=== PATIENT | female | born 1940 | race Caucasian/White ===

== ENCOUNTER 2020-01-24 20:30 | Emergency (ER) | payer MEDICARE, OTHER ==
[~2020-01-24] VITALS: Ht 154.9 cm; Wt 61.0 kg
--- NOTE | 2020-01-24 20:58 | PHYS DOC ---
Past History Past Medical History: GERD, High Cholesterol, Hypertension Past Surgical History: Other Alcohol Use: None Drug Use: None Adult General Chief Complaint Chief Complaint: HEAD INJURY/TRAUMA HPI HPI Patient is a 79-year-old female who presents status post mechanical fall. This happened less than 1 hour prior to arrival. Patient reports going to dinner with other family members. She reports feeling nauseous and generally uneasy prior to eating meal. Nonetheless, patient ate with family and was transported back home. When trying to evacuate vehicle changing from a seated to standing position, patient reports feeling off balance and fell. She cannot completely remember the incident. This episode was observed by family members present who confirmed that she fell backwards and hit posterior right head on pavement. Patient was able to self ambulate after incident but given fall, this concerned family members who immediately transported patient to our ER for evaluation. Patient reports mild dull pain to right posterior head, denies any known lacerations. Patient unable to accurately recall if she had any prodromal symptoms prior to fall. This has never happened to her before. She is being treated for hypertension and hypercholesterolemia and has been compliant with all medications, she does not have a cardiac history or changes in recent medications. She has no recent febrile illness, no chest pain, no shortness of breath, no abdominal pain, nausea previously experienced prior to fall has resolved. She is not on any blood thinners Review of Systems Review of Systems Fourteen body systems of review of systems have been reviewed. See HPI for pertinent positives and negative responses, other carbajal all other systems are negative, non-pertinent or non-contributory Allergies Allergies Allergies Coded Allergies Type Severity Reaction Last Updated Verified Sulfa (Sulfonamide Antibiotics) Allergy Unknown 05/01/16 Yes Physical Exam Physical Exam Constitutional: Pt is oriented to person, place, and time. Pt appears well- developed and well-nourished. HENT: Head: Normocephalic and atraumatic. Mouth/Throat: Oropharynx is clear and moist. No lacerations or abrasions to face or scalp. Approximately 3 cm hematoma present on right posterior occiput without overlying abrasion or laceration OP clear, no blood, no malocclusion, dentition intact Nares clear, no nasal septal hematoma TMs clear, no hemotympanum Midface stable Eyes: Conjunctivae and EOM are normal. Pupils are equal, round, and reactive to light. Neck: C-spine midline nontender, no step-offs Cardiovascular: Normal rate, regular rhythm and normal heart sounds. Pulmonary/Chest: Effort normal and breath sounds normal. No respiratory distress. No wheezes. CTA bilaterally Abdominal: Soft. Bowel sounds are normal. Pt exhibits no distension. There is no tenderness. Musculoskeletal: No bony tenderness to extremities, no deformities, full ROM extremities Chest wall stable Pelvis stable and non-tender No vertebral TTP and spine without stepoffs Neurological: Pt is alert and oriented to person, place, and time. Moving all extremities willfully, able to wiggle all fingers and toes Alert and oriented x 3 Sensation grossly intact Skin: Skin is warm and dry. No abrasions, no lacerations Psychiatric: Behavior is appropriate for situation Nursing note and vitals reviewed. Current Patient Data Vital Signs Vital Signs Date Time Temp Pulse Resp B/P (MAP) Pulse Ox O2 Delivery O2 Flow Rate FiO2 01/24/20 20:38 97.7 69 16 189/95 (126) 99 Room Air Lab Results Laboratory Tests Test 01/24/20 21:00 White Blood Count 8.2 x10^3/uL (4.0-11.0) Red Blood Count 4.19 x10^6/uL (3.50-5.40) Hemoglobin 12.5 g/dL (12.0-15.5) Hematocrit 37.6 % (36.0-47.0) Mean Corpuscular Volume 90 fL (79-100) Mean Corpuscular Hemoglobin 30 pg (25-35) Mean Corpuscular Hemoglobin Concent 33 g/dL (31-37) Red Cell Distribution Width 13.8 % (11.5-14.5) Platelet Count 200 x10^3/uL (140-400) Neutrophils (%) (Auto) 62 % (31-73) Lymphocytes (%) (Auto) 20 % (24-48) Monocytes (%) (Auto) 13 % (0-9) Eosinophils (%) (Auto) 4 % (0-3) Basophils (%) (Auto) 1 % (0-3) Neutrophils # (Auto) 5.1 x10^3uL (1.8-7.7) Lymphocytes # (Auto) 1.6 x10^3/uL (1.0-4.8) Monocytes # (Auto) 1.1 x10^3/uL (0.0-1.1) Eosinophils # (Auto) 0.4 x10^3/uL (0.0-0.7) Basophils # (Auto) 0.1 x10^3/uL (0.0-0.2) Sodium Level 133 mmol/L (136-145) Potassium Level 3.8 mmol/L (3.5-5.1) Chloride Level 98 mmol/L (98-107) Carbon Dioxide Level 25 mmol/L (21-32) Anion Gap 10 (6-14) Blood Urea Nitrogen 24 mg/dL (7-20) Creatinine 1.0 mg/dL (0.6-1.0) Estimated GFR (Cockcroft-Gault) 53.8 BUN/Creatinine Ratio 24 (6-20) Glucose Level 149 mg/dL (70-99) Calcium Level 10.0 mg/dL (8.5-10.1) Total Bilirubin 0.3 mg/dL (0.2-1.0) Aspartate Amino Transf (AST/SGOT) 18 U/L (15-37) Alanine Aminotransferase (ALT/SGPT) 22 U/L (14-59) Alkaline Phosphatase 103 U/L (46-116) Troponin I Quantitative < 0.017 ng/mL (0-0.055) Total Protein 7.0 g/dL (6.4-8.2) Albumin 3.8 g/dL (3.4-5.0) Albumin/Globulin Ratio 1.2 (1.0-1.7) EKG EKG EKG ordered and interpreted by myself at 2153 hrs. as sinus rhythm at 66 bpm, unremarkable intervals, no axis deviation, no ischemic findings, no STEMI Radiology/Procedures Radiology/Procedures PROCEDURE: CHEST AP ONLY Exam: Chest one view INDICATION: Fall TECHNIQUE: Frontal view of the chest Comparisons: None FINDINGS: The cardiomediastinal silhouette and pulmonary vessels are within normal limits. The lung and pleural spaces are clear. IMPRESSION: No acute cardiopulmonary process. Electronically signed by: India Jasmine MD (01/24/2020 9:58 PM) [facility] PROCEDURE: CT HEAD AND CERVICAL SPINE WO Exam: CT head and cervical spine without contrast INDICATION: Mechanical fall, hit posterior right head TECHNIQUE: Sequential axial images through the head and cervical spine were obtained without the administration of IV contrast. Comparisons: None FINDINGS: Head: No focal parenchymal lesion or hemorrhage is identified. There is no midline shift or sulcal effacement. There is patchy hypodensity in the periventricular white matter. No acute vascular territory infarction is identified. Victoria-white distinction is preserved. The ventricular system is within normal limits without compression hydrocephalus. The basal cisterns are well maintained. Mild extra cranial soft tissue scalp contusion overlying the vertex. The visualized portions of the paranasal sinuses and mastoid air cells are well-pneumatized. No acute fractures. Cervical spine: Vertebral body heights are well-maintained. There is straightening of the cervical spine which may be positional. Fracture to the cervical spine is not identified. Multilevel spondylotic change in cervical spine with degenerative disc disease greatest at C6-C7. Visualized paraspinal soft tissues are unremarkable. IMPRESSION: 1. Mild extra cranial soft tissue scalp contusion overlying the vertex without underlying osseous or intracranial abnormality. 2. Negative CT C-spine for acute traumatic injury. Exposure: One or more of the following in the visualized dose reduction techniques were utilized for this examination: 1. Automated exposure control 2. Adjustment of the MA and/or KV according to patient size Use of iterative of reconstructive technique Electronically signed by: India Jasmine MD (01/24/2020 9:44 PM) [facility] Heart Score HEART Score for Chest Pain: HEART Score for Chest Pain Response (Comments) Value History Slighlty/Non-Suspicious 0 ECG Normal 0 Age > 65 2 Risk Factors 1 or 2 Risk Factors 1 Troponin < Normal Limit 0 Total 3 Risk Factors: Risk Factors: DM, Current or recent (<one month) smoker, HTN, HLP, family history of CAD, obesity. Risk Scores: Risk Factors: DM, Current or recent (<one month) smoker, HTN, HLP, family history of CAD, obesity. Course & Med Decision Making Course & Med Decision Making Patient seen on ER arrival ABCs nonconcerning Comprehensive history and physical exam obtained, subsequent diagnostic work-up ordered Discussed most likely diagnosis of head contusion after grossly benign physical examination and diagnostic studies I did disclose this might be an acute presentation of more concerning pathology; however, it is comforting that patient is going home and lives with with good family support as daughter lives next door I discussed need for close outpatient follow-up with primary care physician in upcoming 48 hours, patient reports this is possible I educated patient on strict return precautions with good understanding, all questions and concerns addressed prior to ER departure in stable condition with supportive care advised Shayy Disclaimer Shayy Disclaimer This electronic medical record was generated, in whole or in part, using a voice recognition dictation system. Departure Departure: Impression: Primary Impression: Fall Disposition: 01 DC HOME SELF CARE/HOMELESS Condition: STABLE Referrals: ALPHONSO SALINAS MD (PCP) Patient Instructions: Fall Prevention and Home Safety Additional Instructions: As discussed prior to ER departure, please call your primary care physician to schedule outpatient follow-up in upcoming 7 days It was a pleasure to take care of you this evening and I wish you a speedy recovery! HEAVEN VILLA DO Jan 24, 2020 20:57
[2020-01-24 21:14] LABS: BASO # 0.1 x10^3/uL (0.0-0.2); BASO % 1 % (0-3); EOS # 0.4 x10^3/uL (0.0-0.7); EOS % 4 % (0-3); HEMATOCRIT 37.6 % (36.0-47.0); HEMOGLOBIN 12.5 g/dL (12.0-15.5); LYMPH # 1.6 x10^3/uL (1.0-4.8); LYMPH % 20 % (24-48); MEAN CORPUSCULAR HEMOGLOBIN 30 pg (25-35); MEAN CORPUSCULAR HGB CONC 33 g/dL (31-37); MEAN CORPUSCULAR VOLUME 90 fL (79-100); MONO # 1.1 x10^3/uL (0.0-1.1); MONO % 13 % (0-9); NEUT # 5.1 x10^3uL (1.8-7.7); NEUT % 62 % (31-73); PLATELET COUNT 200 x10^3/uL (140-400); RED BLOOD COUNT 4.19 x10^6/uL (3.50-5.40); RED CELL DISTRIBUTION WIDTH 13.8 % (11.5-14.5); WHITE BLOOD COUNT 8.2 x10^3/uL (4.0-11.0)
[2020-01-24 21:30] LABS: GFR 53.8; POTASSIUM 3.8 mmol/L (3.5-5.1)
[2020-01-24 21:33] LABS: ALBUMIN 3.8 g/dL (3.4-5.0); ALBUMIN/GLOBULIN RATIO 1.2 (1.0-1.7); TOTAL BILIRUBIN 0.3 mg/dL (0.2-1.0)
--- NOTE | 2020-01-24 21:47 | RAD ---
Exam: CT head and cervical spine without contrast INDICATION: Mechanical fall, hit posterior right head TECHNIQUE: Sequential axial images through the head and cervical spine were obtained without the administration of IV contrast. Comparisons: None FINDINGS: Head: No focal parenchymal lesion or hemorrhage is identified. There is no midline shift or sulcal effacement. There is patchy hypodensity in the periventricular white matter. No acute vascular territory infarction is identified. Victoria-white distinction is preserved. The ventricular system is within normal limits without compression hydrocephalus. The basal cisterns are well maintained. Mild extra cranial soft tissue scalp contusion overlying the vertex. The visualized portions of the paranasal sinuses and mastoid air cells are well-pneumatized. No acute fractures. Cervical spine: Vertebral body heights are well-maintained. There is straightening of the cervical spine which may be positional. Fracture to the cervical spine is not identified. Multilevel spondylotic change in cervical spine with degenerative disc disease greatest at C6-C7. Visualized paraspinal soft tissues are unremarkable. IMPRESSION: 1. Mild extra cranial soft tissue scalp contusion overlying the vertex without underlying osseous or intracranial abnormality. 2. Negative CT C-spine for acute traumatic injury. Exposure: One or more of the following in the visualized dose reduction techniques were utilized for this examination: 1. Automated exposure control 2. Adjustment of the MA and/or KV according to patient size Use of iterative of reconstructive technique Electronically signed by: India Jasmine MD (01/24/2020 9:44 PM) [facility]
--- NOTE | 2020-01-24 22:01 | RAD ---
Exam: Chest one view INDICATION: Fall TECHNIQUE: Frontal view of the chest Comparisons: None FINDINGS: The cardiomediastinal silhouette and pulmonary vessels are within normal limits. The lung and pleural spaces are clear. IMPRESSION: No acute cardiopulmonary process. Electronically signed by: India Jasmine MD (01/24/2020 9:58 PM) [facility]
[2020-01-24 22:11] VITALS: BP 164/74
--- NOTE | 2020-01-24 22:59 | EKG ---
[address] [address] Test Date: 2020-01-24 Test Time: 21:47:44 Pat Name: NKECHI VALENZUELA Department: Room: Gender: F Shredder Picker: : [phone] Requested By: HEAVEN VILLA Order Number: [id number] Reading MD: Measurements Intervals [place] Rate: 66 P: 38 KS: 200 QRS: 54 QRSD: 92 T: 40 QT: 400 QTc: 421 Interpretive Statements SINUS RHYTHM NORMAL ECG RI6.02 No previous ECG available for comparison
== END 2020-01-24 22:30 | disposition home or self-care (01) ==
LOC: ER 20:30
DX: S00.03XA Contusion of scalp, initial encounter (principal); I10 Essential (primary) hypertension; E78.00 Pure hypercholesterolemia, unspecified; K21.9 Gastro-esophageal reflux disease without esophagitis; Z88.2 Allergy status to sulfonamides; W17.89XA Other fall from one level to another, initial encounter; Y93.89 Activity, other specified; Y92.89 Other specified places as the place of occurrence of the external cause; Y99.8 Other external cause status
CPT/HCPCS: 36415; 70450; 71045; 72125; 80053; 84484; 85025; 93005; 99285-25

== ENCOUNTER 2020-04-16 09:04 | Emergency (ER) | payer MEDICARE ==
[~2020-04-16] VITALS: Ht 154.9 cm; Wt 63.7 kg
--- NOTE | 2020-04-16 09:30 | PHYS DOC ---
Past History Past Medical History: GERD, High Cholesterol, Hypertension Past Surgical History: Other Alcohol Use: None Drug Use: None General Adult EDM: Chief Complaint: DIZZY/LIGHT HEADED HPI: HPI: 79 yo F PMH HTN, HLD and gerd presents to the ed with c/o sudden onset dizziness described as the room spinning with associated nausea, nonbloody nonbilious vomiting that started around 11 PM last night. Reports history of concussion January 2020. No recent head or neck infection or fever. No associated tinnitus, vision changes or hearing loss. Follows with ENT-recently had her ears irrigated. Review of Systems: Review of Systems: Constitutional: Denies fever or chills Eyes: Denies change in visual acuity HENT: Denies nasal congestion or sore throat or tinnitus or hearing loss Respiratory: Denies cough or shortness of breath Cardiovascular: Denies chest pain or edema GI: Denies abdominal pain, bloody stools or diarrhea : Denies dysuria or dysuria Musculoskeletal: Denies back pain or joint pain Integument: Denies rash or diaphoresis Neurologic: Denies headache, neck stiffness, focal weakness or sensory changes Endocrine: Denies polyuria or polydipsia Lymphatic: Denies swollen glands Psychiatric: Denies depression or anxiety Allergies: Allergies: Allergies Coded Allergies Type Severity Reaction Last Updated Verified Sulfa (Sulfonamide Antibiotics) Allergy Unknown 05/01/16 Yes Physical Exam: PE: Constitutional: Well developed, well nourished, no acute distress, non-toxic appearance. HENT: Normocephalic, atraumatic, Eyes: EOMI, conjunctiva normal, no discharge, PERRLA, horizontal nystagmus to the left with EOMI, normal TMs Neck: Normal range of motion, supple, Cardiovascular: S1/2 present, regular rhythm Lungs & Thorax: Speaking in full sentences, bilateral equal chest rise, no tachy pnea or increased work of breathing Abdomen: soft, no tenderness, Skin: Warm, dry, no erythema, no rash. [] Back: No tenderness, no CVA tenderness. [] Extremities: No tenderness, no cyanosis, no edema Neurologic: Alert and oriented X 3, normal motor function, normal sensory function, no focal deficits noted, cranial nerves II through XII intact, steady gait with no ataxia, normal FNF and COLIN testing Psychologic: Affect normal, judgement normal, mood normal. [] HINTS exam performed with active persistent vertigo. Exam negative for central pathology. Pt with no vertical nystagmus (horizontal nystagmus and lack of nystagmus consistent with peripheral vertigo), normal corrective saccade with head impulse test and no skew deviation. EKG: EKG: Sinus rhythm at 67 bpm, no axis deviation, first-degree AV block with CO interval of 202, T wave inversion lead III, no ST elevations or ST depressions Radiology/Procedures: Radiology/Procedures: IMAGING REPORT Signed PATIENT: NKECHI VALENZUELA ACCOUNT: [id number] : 1940 LOCATION: ER AGE: 79 SEX: F EXAM STATUS: REG ER ORD. PHYSICIAN: BISHOP VARELA DO REASON: dizzy PROCEDURE: PORTABLE CHEST 1V XR CHEST 1V Clinical Indication: Reason: dizzy Comparison: AP chest, January 24, 2020. Findings: The cardiomediastinal silhouette is normal. There is mild atelectasis in the left lung base. There is no pneumothorax. No pleural effusion is appreciated. No acute bone abnormality. Moderate S-shaped thoracolumbar scoliosis. IMPRESSION: Mild left basilar atelectasis. Electronically signed by: Murphy Gutierrez MD (04/16/2020 10:42 AM) [id number] DICTATED AND SIGNED BY: MURPHY GUTIERREZ MD DATE: 04/16/20 1039 CC: BISHOP VARELA DO; ALPHONSO SALINAS MD ~MTH0 0 Heart Score: Risk Factors: Risk Factors: DM, Current or recent (<one month) smoker, HTN, HLP, family history of CAD, obesity. Risk Scores: Score 0 - 3: 2.5% MACE over next 6 weeks - Discharge Home Score 4 - 6: 20.3% MACE over next 6 weeks - Admit for Clinical Observation Score 7 - 10: 72.7% MACE over next 6 weeks - Early Invasive Strategies Course & Med Decision Making: Course & Med Decision Making Pertinent Labs and Imaging studies reviewed. (See chart for details) Concern for peripheral vertigo, now almost fully resolved. Patient states dizziness gradually got worse (reported to rn dizziness was sudden onset and constant-thus stroke workup was started), had difficulties walking shortly after it started but this has resolved, sudden position changes make it worse. Patient is now ambulatory with steady gait. Will DC home with antiemetics and meclizine. Will discharge home with strict ED return precautions were given for sudden onset dizziness, ataxia, nausea, vomiting or neurologic deficits. Encouraged urgent outpatient follow-up with PMD and ENT in the next week. Life-threatening processes were considered but are low suspicion at this time, given history, physical exam and ED workup. Pt was educated on all prescription medications and adverse effects. All patient's questions were answered and pt was stable at time of discharge. Life/limb-threatening differential includes but is not limited to, cerebrovascular accident, cerebellar stroke, acute coronary syndrome, carbon monoxide poisoning or other toxidrome, syncope differential including cardiac arrhythmia/PE/aortic aneurysm or dissection/ACS, Guillan [place] syndrome, thyroid disease, infection, central and peripheral vertigo, intracranial hemorrhage, vertebrobasilar insufficiency, heat stroke, electrolyte disorder, rheumatologic or autoimmune disorder I spoken with the patient and her caregivers. I explained the patient's condition, diagnoses and treatment plan based on the information available to me at this time. I have answered the patient and her caregiver's questions and addressed any concerns. The patient and her caregivers have a good understanding of patient's diagnosis, condition and treatment plan as can be expected at this point. Vital signs have been stable. Patient's condition is stable and appropriate for discharge from the emergency department. Patient will pursue further outpatient evaluation with primary care physician or other designated or consulting physician as outlined in the discharge instructions. The patient and/or caregivers are agreeable to this plan of care and follow-up instructions have been explained in detail. The patient and/or caregivers have received these instructions in written form and have expressed an understanding of the discharge instructions. The patient and/or caregivers are aware that any significant change of condition or worsening of symptoms should prompt immediate return to this or the closest emergency department or call to 911. Spikesaud Disclaimer: Shayy Disclaimer: This electronic medical record was generated, in whole or in part, using a voice recognition dictation system. Departure Departure: Impression: Primary Impression: Vertigo Additional Impression: Nausea and vomiting Disposition: DC HOME SELF CARE/HOMELESS Condition: STABLE Referrals: ALPHONSO SALINAS MD (PCP) Within next few weeks Patient Instructions: Benign Positional Vertigo, Vertigo Additional Instructions: FOLLOW UP WITH ENT: Bird Gill DO [address], [address] [place] [address] OR [phone], [facility]. [address] [facility] [address] [place] [address] EMERGENCY DEPARTMENT GENERAL DISCHARGE INSTRUCTIONS Thank you for coming to [facility] (ED) today and trusting us with you care. We trust that you had a positivie experience in our Emergency Department. If you wish to speak to the department management, you may call the director at [phone]. YOUR FOLLOW UP INSTRUCTIONS ARE FOLLOWS: 1. Do you have a private Doctor? If you do not have a private doctor, please ask for a resource list of physicians or clinics that may be able to assist you with follow up care. 2. The Emergency Physician has interpreted your x-rays. The X-Ray specialist will also review them. If there is a change in the findings, you will be notified in 48 hours when at all possible. 3. A lab test or culture has been done, your results will be reviewed and you will be notified if you need a change in treatment. ADDITIONAL INSTRUCTIONS AND INFORMATION: 1. Your care today has been supervised by a physician who is specially trained in emergency care. Many problems require more than one evaluation for a complete diagnosis and treatment. We recommend that you schedule your follow up appointment as recommended to ensure complete treatment of you illness or injury. If you are unable to obtain follow up care and continue to have a problem, or if your condition worsens, we recommend that you return to the ED. 2. We are not able to safely determine your condition over the phone nor are we able to give sound medical advice over the phone. For these safety reasons, if you call for medical advice we will ask you to come to the ED for further evaluation. 3. If you have any questions regarding these discharge instructions please call the ED at [phone]. SAFETY INFORMATION: In the interest of safety, wellness, and injury prevention; we encourage you to wear your sealbelt, if you smoke; quite smoking, and we encourage family to use a protective helmet for bicycling and other sporting events that present an increased risk for head injury. IF YOUR SYMPTOMS WORSEN OR NEW SYMPTOMS DEVELOP, OR YOU HAVE CONCERNS ABOUT YOUR CONDITION; OR IF YOUR CONDITION WORSENS WHILE YOU ARE WAITING FOR YOUR FOLLOW UP APPOINTMENT; EITHER CONTACT YOUR PRIMARY CARE DOCTOR, THE PHYSICIAN WHOSE NAME AND NUMBER YOU WERE GIVEN, OR RETURN TO THE ED IMMEDIATELY. Scripts Meclizine Hcl (MECLIZINE HCL) 12.5 Mg Tablet 1 TAB PO TID for vertigo, #20 TAB 0 Refills Prov: BISHOP VARELA DO 04/16/20 Ondansetron (ONDANSETRON ODT) 4 Mg Tab.rapdis 4 MG PO Q6HRS for Nausea/Vomiting, #15 TAB Prov: BISHOP VARELA DO 04/16/20 BISHOP VARELA DO Apr 16, 2020 09:30
[2020-04-16] MEDS ORDERED: ONDANSETRON PF 4 MG/2 ML VIAL. ONE (09:39)
[2020-04-16] MEDS ORDERED: ONDANSETRON PF 4 MG/2 ML VIAL. IVP ONE (09:45)
[2020-04-16] MEDS ORDERED: IV NORMAL SALINE 1,000ML 1,000 ML IV ONE (09:45)
[2020-04-16 09:56] LABS: BASO # 0.1 x10^3/uL (0.0-0.2); BASO % 1 % (0-3); EOS # 0.3 x10^3/uL (0.0-0.7); EOS % 3 % (0-3); HEMATOCRIT 41.1 % (36.0-47.0); HEMOGLOBIN 13.5 g/dL (12.0-15.5); LYMPH # 1.5 x10^3/uL (1.0-4.8); LYMPH % 18 % (24-48); MEAN CORPUSCULAR HEMOGLOBIN 29 pg (25-35); MEAN CORPUSCULAR HGB CONC 33 g/dL (31-37); MEAN CORPUSCULAR VOLUME 88 fL (79-100); MONO # 0.8 x10^3/uL (0.0-1.1); MONO % 9 % (0-9); NEUT # 5.9 x10^3uL (1.8-7.7); NEUT % 68 % (31-73); PLATELET COUNT 226 x10^3/uL (140-400); RED BLOOD COUNT 4.67 x10^6/uL (3.50-5.40); RED CELL DISTRIBUTION WIDTH 13.8 % (11.5-14.5); WHITE BLOOD COUNT 8.6 x10^3/uL (4.0-11.0)
[2020-04-16] MEDS ORDERED: CONTRAST GIVEN. MC PRN (10:00)
[2020-04-16] MEDS ORDERED: IOHEXOL 350 MG/ML 100 ML VIAL. IV ONE (10:00)
[2020-04-16 10:08] LABS: CREATININE 0.7 mg/dL (0.6-1.0); GFR 81.1; POTASSIUM 3.4 mmol/L (3.5-5.1)
[2020-04-16 10:11] LABS: BARBITURATES NEG (NEG); BENZODIAZEPINES NEG (NEG); CANNABINOIDS NEG (NEG); COCAINE NEG (NEG); METHADONE NEG (NEG); OPIATES NEG (NEG); PHENCYCLIDINE NEG (NEG)
[2020-04-16 10:12] LABS: AMPHETAMINE/METHAMPHETAMINE NEG (NEG)
[2020-04-16 10:14] LABS: ALBUMIN 4.7 g/dL (3.4-5.0); ALBUMIN/GLOBULIN RATIO 1.6 (1.0-1.7); BACTERIA,URINE FEW /HPF (0-FEW); BILIRUBIN,URINE NEG (NEG); CLARITY,URINE HAZY; COLOR,URINE YELLOW; GLUCOSE,URINE NEG (NEG); NITRITE,URINE NEG (NEG); RBC,URINE 0 /HPF (0-2); SQUAMOUS EPITHELIAL CELL,UR FEW /LPF; TOTAL BILIRUBIN 0.5 mg/dL (0.2-1.0); TOTAL PROTEIN 7.6 g/dL (6.4-8.2); UROBILINOGEN,URINE 0.2 mg/dL (0.2 mg/dL); WBC,URINE 0 /HPF (0-4)
[2020-04-16] MEDS ORDERED: diazePAM 5 MG TABLET. PO ONE (10:30)
--- NOTE | 2020-04-16 10:31 | EKG ---
[address] [address] Test Date: 2020-04-16 Test Time: 10:25:59 Pat Name: NKECHI VALENZUELA Department: Room: Gender: F Bilingual Operator: : 1940 Requested By: BISHOP VARELA Order Number: [id number] Reading MD: Measurements Intervals [place] Rate: 67 P: 49 ID: [id number] QRS: 45 QRSD: 92 T: 16 QT: 412 QTc: 438 Interpretive Statements SINUS RHYTHM NORMAL ECG RI6.02 No previous ECG available for comparison
--- NOTE | 2020-04-16 10:45 | RAD ---
XR CHEST 1V Clinical Indication: Reason: dizzy Comparison: AP chest, January 24, 2020. Findings: The cardiomediastinal silhouette is normal. There is mild atelectasis in the left lung base. There is no pneumothorax. No pleural effusion is appreciated. No acute bone abnormality. Moderate S-shaped th oracolumbar scoliosis. IMPRESSION: Mild left basilar atelectasis. Electronically signed by: Murphy Gutierrez MD (04/16/2020 10:42 AM) [id number]
--- NOTE | 2020-04-16 10:50 | RAD ---
EXAM: CTA HEAD AND NECK W/WO CONTRAST, CT HEAD/BRAIN WO DATE: 04/16/2020 10:22 AM INDICATION: dizzy/nausea TECHNIQUE: 5 mm axial tomographic images were obtained through the head before contrast. CTA angiogra m of the head and neck was obtained after IV bolus administration of 100 cc of Omnipaque 350. The nataliia ges were sent to workstation and multiplanar reconstructions were obtained. Multiplanar reconstructi on images to include MIP and 3-D reconstruction images are submitted. One or more of the following dose reduction techniques were utilized: Automated exposure control (AEC ), Adjustment of mA and/or kV according to patient size, Use of iterative reconstruction technique doyle ch as ASiR, CT scan done according to ALARA and image gently/image wisely COMPARISON: CT head 01/24/2020. FINDINGS: Noncontrast CT: Extensive nonspecific periventricular hypoattenuation is most consistent with chronic small vessel is chemic disease. Mild generalized cerebral volume loss. Chronic basal ganglia lacunar infarcts. No int ra- or extra-axial mass or fluid collection. No hyperdense intracranial hemorrhage. The ventricles ar e normal in size and configuration without midline shift. There is normal estrada-white matter different iation. The subarachnoid cisterns are patent. The visualized paranasal sinuses are well aerated. The mastoid air cells are clear. The visualized po rtions of the orbits are normal. No aggressive osseous lesion or fracture. CTA Head: The visualized distal internal carotid arteries, anterior and middle cerebral arteries are patent and normal caliber. origin of the right [employer]. The distal vertebral arteries, basilar artery, and po sterior cerebral arteries are otherwise patent and normal caliber. 1 mm left posterior communicating artery probable infundibulum. CTA Neck: Right carotid: The right common carotid artery is patent and normal caliber. The carotid bifurcation is normal. No stenosis of the right internal carotid artery per NASCET criteria. The right external c arotid artery is patent. Left carotid: The left common carotid artery is patent and normal caliber. The carotid bifurcation is normal. No stenosis of the left internal carotid artery per NASCET criteria. The left external carot id artery is patent. Right vertebral: The right vertebral artery is patent and normal caliber. Left vertebral: The left vertebral artery is patent and normal caliber. The visualized portions of the aortic arch are normal. The origins of the brachiocephalic and subclav jhoan arteries are normal. No cervical lymphadenopathy. The thyroid gland is normal. The parotid and submandibular glands are no rmal. The visualized aerodigestive tract is unremarkable. Mild multilevel degenerative disc height loss. Multilevel disc protrusions and marginal osteophytes r esults in multilevel spinal canal stenosis. Multilevel uncovertebral and facet arthrosis with multile tanner neural foraminal narrowing. The visualized portions of the lungs are clear. IMPRESSION: 1. No acute intracranial process by noncontrast head CT. 2. No intracranial stenosis or occlusion. 3. No stenosis of the cervical carotid or vertebral arteries. PQRS Compliance Statement - Stenosis calculations for CT, MR and conventional angiography are based u regina measurement of the distal ICA diameter in accordance with the NASCET methodology. Electronically signed by: Josue Cabrera MD (04/16/2020 10:47 AM) [id number]
[2020-04-16] MEDS ORDERED: DEXAMETHASONE SOD PHOS 10 MG/ML VIAL. IV ONE (11:15)
[2020-04-16] MEDS ORDERED: MECLIZINE 12.5 MG TABLET. PO ONE (12:30)
[2020-04-16] MEDS ORDERED: MECL12.574 PO (13:26)
[2020-04-16] MEDS ORDERED: ONDA4TAB12 PO (13:26)
[2020-04-16 13:50] VITALS: BP 180/86
== END 2020-04-16 14:05 | disposition home or self-care (01) ==
LOC: ER 09:04
DX: R42 Dizziness and giddiness (principal); R11.2 Nausea with vomiting, unspecified; K21.9 Gastro-esophageal reflux disease without esophagitis; E78.00 Pure hypercholesterolemia, unspecified; I10 Essential (primary) hypertension; Z88.2 Allergy status to sulfonamides
CPT/HCPCS: 36415; 70450; 70496; 70498; 71045; 80053; 80307; 81001; 83690; 83735; 84484; 85025; 93005; 96361; 96374; 99285; J2405; J7030; Q9967

== ENCOUNTER 2021-08-15 09:47 | Emergency (ER) | payer MEDICARE ==
[~2021-08-15] VITALS: Ht 154.9 cm; Wt 63.7 kg
[~2021-08-15 09:47] MED LIST: MECL12.582 PO; ONDA4TAB12 PO
[2021-08-15] MEDS ORDERED: TETRACAINE 0.5% OPHTH SOLUTION 4ML BOTTLE. ONE (10:10)
[2021-08-15] MEDS ORDERED: TETRACAINE 0.5% OPHTH SOLUTION 4ML BOTTLE. OU ONE (10:15)
--- NOTE | 2021-08-15 10:29 | PHYS DOC ---
Past History Past Medical History: GERD, High Cholesterol, Hypertension Past Surgical History: Hip Replacement, Hysterectomy, Other Additional Past Surgical Histo: hernia surgery Alcohol Use: None Drug Use: None Adult General Chief Complaint Chief Complaint: VISION PROBLEM HPI HPI Patient is a 80 year old female who presents with complaint of left-sided vision loss. The patient states that starting at 0900 this morning, she started to notice what she describes as a green line going through the left side of her vision. She states that this only affects the left eye. She also has been noticing occasional black spots appearing in the left eye. States that the green line still remains and has not left since onset. Currently denies any pain or recent injury to the left eye. She denies any other complaints incl uding unilateral weakness, difficulty with speech or swallowing, or doubling of vision. 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 She saw Dr. Feng at that time for evaluation and was treated medically. Denies chest pain, shortness of breath, fever, vomiting, or dizziness. Review of Systems Review of Systems Constitutional: Denies fever or chills [] Eyes: Visual disturbance, denies redness, eye pain, or swelling [] HENT: Denies nasal congestion or sore throat [] Respiratory: Denies cough or shortness of breath [] Cardiovascular: No additional information not addressed in HPI [] GI: Denies abdominal pain, nausea, vomiting, bloody stools or diarrhea [] : Denies dysuria or hematuria [] Musculoskeletal: Denies back pain or joint pain [] Integument: Denies rash or skin lesions [] Neurologic: Denies headache, focal weakness or sensory changes [] All other systems were reviewed and found to be within normal limits, except as documented in this note. Current Medications Current Medications Current Medications Medications (Trade) Dose Ordered Sig/Theresa Start Time Stop Time Status Last Admin Dose Admin Tetracaine HCl (Tetracaine) 40 drop STK-MED ONCE 08/15/21 10:10 08/15/21 10:11 DC Allergies Allergies Allergies Coded Allergies Type Severity Reaction Last Updated Verified Sulfa (Sulfonamide Antibiotics) Allergy Unknown 05/01/16 Yes Physical Exam Physical Exam Constitutional: Well developed, well nourished, no acute distress, non-toxic appearance. [] HENT: Normocephalic, atraumatic, bilateral external ears normal, oropharynx moist, no oral exudates, nose normal. [] Eyes: PERRLA, EOMI, conjunctiva normal, no discharge, Tamir-Pen evaluation of intraocular pressure shows left eye of 27 and right eye of 10. [] Neck: Normal range of motion, no tenderness, supple, no stridor. [] Cardiovascular:Heart rate regular rhythm, no murmur [] Lungs & Thorax: Bilateral breath sounds clear to auscultation [] Abdomen: Bowel sounds normal, soft, no tenderness, no masses, no pulsatile masses. [] Skin: Warm, dry, no erythema, no rash. [] Back: No tenderness, no CVA tenderness. [] Extremities: No tenderness, no cyanosis, no clubbing, ROM intact, no edema. [] Neurologic: Alert and oriented X 3, normal motor function, normal sensory function, no focal deficits noted. [] Current Patient Data Vital Signs Vital Signs Date Time Temp Pulse Resp B/P (MAP) Pulse Ox O2 Delivery O2 Flow Rate FiO2 08/15/21 09:58 98.2 65 16 190/86 (120) 97 Room Air Lab Results Not performed EKG EKG Not performed [] Radiology/Procedures Radiology/Procedures Not performed [] Heart Score C/O Chest Pain: No Risk Factors: Risk Factors: DM, Current or recent (<one month) smoker, HTN, HLP, family history of CAD, obesity. Risk Scores: Risk Factors: DM, Current or recent (<one month) smoker, HTN, HLP, family history of CAD, obesity. Course & Med Decision Making Course & Med Decision Making Pertinent Labs and Imaging studies reviewed. (See chart for details) Patient had mild elevation of intraocular pressure in the left eye and no elevation in the right eye. Patient denies any other complaints. I have low suspicion for acute coronary syndrome or stroke. I contacted Dr. Salcedo of ophthalmology regarding patient. He has agreed to evaluate patient in his office upon dismissal from the emergency department. Informed patient of plan of care and she is in agreement at time of dismissal. [] Dragon Disclaimer Dragon Disclaimer This electronic medical record was generated, in whole or in part, using a voice recognition dictation system. Departure Departure: Impression: Primary Impression: Vision changes Disposition: HOME / SELF CARE / HOMELESS Condition: STABLE Referrals: ALPHONSO SALINAS MD (PCP) CHRISTINA SALCEDO MD Patient Instructions: Eye - Blurred Vision Additional Instructions: You will need to go straight to the office of Dr. Salcedo of ophthalmology upon dismissal from the emergency department. MARY DURÁN MD August 15, 2021 10:29
== END 2021-08-15 10:46 | disposition home or self-care (01) ==
LOC: ER 09:47
DX: H53.8 Other visual disturbances (principal); H54.62 Unqualified visual loss, left eye, normal vision right eye; K21.9 Gastro-esophageal reflux disease without esophagitis; E78.00 Pure hypercholesterolemia, unspecified; I10 Essential (primary) hypertension; Z88.2 Allergy status to sulfonamides
CPT/HCPCS: 99283